=== PATIENT | female | born 1985 | race Caucasian/White ===

== ENCOUNTER 2016-09-28 22:21 | Emergency (ER) | payer BC ==
[2016-09-28] MEDS ORDERED: Amoxicillin/Clavulanate K 875-125 MG Tab PO ONE (22:36)
[2016-09-28] MEDS ORDERED: Diphtheria,Pertussis(Acell),Tetanus Vaccine 0.5 ML SDV inactive IM ONE (22:37)
--- NOTE | 2016-09-28 22:42 | EDM.PDOC ---
ED HPI GENERAL MEDICAL PROBLEM - General Chief Complaint: Bite:Animal, Insect Stated Complaint: Dog bite Time Seen by Provider: 09/28/16 22:25 Source of Information: Reports: Patient, RN Notes Reviewed History Limitations: Reports: No Limitations - History of Present Illness INITIAL COMMENTS - FREE TEXT/NARRATIVE: 31 year old female presents to the ED after her dog bit her arm earlier today. The dog had surgery and woke up from anesthesia agitated and subsequently bit her. She has two puncture wounds to her inner forearm. The dog is up to date on vaccinations. Her tetanus is not current. Right Arm Pain Score (Numeric/FACES): 8 - Related Data Allergies Allergy/AdvReac Type Severity Reaction Status Date / Time bee pollen Allergy Rash Verified 09/28/16 22:31 Home Meds: Home Meds Amoxicillin/Potassium Clav [Augmentin 875-125 Tablet] 1 each PO BID #20 tablet 09/28/16 [Rx] Prednisone [IMW: predniSONE] 30 mg PO DAILY 09/28/16 [History] Past Medical History - Past Surgical History GI Surgical History: Reports: Cholecystectomy ED ROS GENERAL - Review of Systems Review Of Systems: See Below Constitutional: Reports: No Symptoms. Denies: Fever, Chills Skin: Reports: Wound Neurological: Reports: No Symptoms. Denies: Numbness, Tingling ED EXAM, ANIMAL BITE - Physical Exam Exam: See Below Exam Limited By: No Limitations General Appearance: Alert, WD/WN, No Apparent Distress Extremities: Other (bite cornelius to right forearm with 2 small puncture wounds. CMS intact. No deformity. ) Neurological: Alert, Normal Cognition, No Motor/Sensory Deficits Course - Vital Signs Last Recorded V/S: Last Vital Signs Temp 98.7 F 09/28/16 22:26 Pulse 80 09/28/16 22:26 Resp 18 09/28/16 22:26 BP 140/82 09/28/16 22:26 Pulse Ox 96 09/28/16 22:26 - Orders/Labs/Meds Orders: Active Orders 24 hr Category Date Time Status Vaccines to be Administered [RC] PER UNIT ROUTINE Care 09/28/16 22:37 Ordered Meds: Medications Discontinued Medications Generic Name Dose Route Start Last Admin Trade Name Freq PRN Reason Stop Dose Admin Amoxicillin/Clavulanate Potassium 1 tab 09/28/16 22:36 09/28/16 22:50 Augmentin 875 Mg/125 Mg PO 09/28/16 22:37 1 tab ONETIME ONE Administration Diphtheria/Tetanus/Acell Pertussis 0.5 ml 09/28/16 22:37 09/28/16 22:49 Boostrix IM 09/28/16 22:38 0.5 ml .ONCE ONE Administration Departure - Departure Time of Disposition: 22:36 Disposition: Home, Self-Care 01 Condition: Good Clinical Impression: Dog bite, Tetanus toxoid inoculation - Discharge Information Prescriptions: Amoxicillin/Potassium Clav [Augmentin 875-125 Tablet] 1 each PO BID #20 tablet Instructions: Animal Bite, [id number] Referrals: Yoselyn Steele MD [Primary Care Provider] - Forms: ED Department Discharge Additional Instructions: Cold compresses Tylenol or Ibuprofen as needed for pain Cleanse with gentle soap and water 2-3 times per day then apply antibiotic ointment and bandage. Augmentin 1 tab twice a day for 10 days Return to ER if you develop any signs or symptoms of infection (increasing redness, drainage, swelling, fever) - My Orders Last 24 Hours: My Active Orders 09/28/16 22:37 Vaccines to be Administered [RC] PER UNIT ROUTINE - Assessment/Plan Last 24 Hours: My Active Orders 09/28/16 22:37 Vaccines to be Administered [RC] PER UNIT ROUTINE
[2016-09-28 22:46] VITALS: BP 140/82
== END 2016-09-28 23:07 | disposition home or self-care (01) ==
LOC: JD.ED 22:21
DX: S51.851A Open bite of right forearm, initial encounter (principal); Z23 Encounter for immunization; Z79.899 Other long term (current) drug therapy; Z91.030 Bee allergy status; Z90.49 Acquired absence of other specified parts of digestive tract; W54.0XXA Bitten by dog, initial encounter
CPT/HCPCS: 90471; 99283; A9270; 90715

== ENCOUNTER 2016-11-26 16:56 | Emergency (ER) | payer BC ==
[2016-11-26 17:11] VITALS: BP 140/72
--- NOTE | 2016-11-26 17:59 | EDM.PDOC ---
ED HPI GENERAL MEDICAL PROBLEM - General Chief Complaint: Fever Stated Complaint: SORE THROAT/FEVER Time Seen by Provider: 11/26/16 17:27 Source of Information: Reports: Patient, RN Notes Reviewed, Significant Other History Limitations: Reports: No Limitations - History of Present Illness INITIAL COMMENTS - FREE TEXT/NARRATIVE: The patient states that she developed nausea and dry heaves this past Sunday, 02/2017, which have persisted. She developed a fever some time that same day, up to 102 at home this afternoon. She developed a sore throat last night. She has had a cough productive of clear sputum since Sunday. She denies dyspnea. She has had a headache for the past 2 days. The patient denies urinary symptoms or abdominal discomfort. No prior similar symptoms. No known exposure to strep throat. The patient's PCP is Chana Steele. 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) ED ROS GENERAL - Review of Systems Review Of Systems: See Below Constitutional: Reports: No Symptoms HEENT: Reports: No Symptoms Respiratory: Reports: No Symptoms Cardiovascular: Reports: No Symptoms Endocrine: Reports: No Symptoms GI/Abdominal: Reports: No Symptoms : Reports: No Symptoms Musculoskeletal: Reports: No Symptoms Skin: Reports: No Symptoms Neurological: Reports: No Symptoms Psychiatric: Reports: No Symptoms Hematologic/Lymphatic: Reports: No Symptoms Immunologic: Reports: No Symptoms ED EXAM, GENERAL - Physical Exam Exam: See Below Exam Limited By: No Limitations General Appearance: Alert, WD/WN, No Apparent Distress Eye Exam: Bilateral Eye: Normal Inspection Ears: Normal External Exam, Normal Canal, Hearing Grossly Normal, Normal TMs Nose: Normal Inspection, Normal Mucosa, No Blood Throat/Mouth: Normal Inspection, Normal Lips, Normal Teeth, Normal Gums, Normal Voice, No Airway Compromise, Other (Posterior oropharynx is erythematous, but no tonsillar exudates. No oropharyngeal swelling.) Head: Atraumatic, Normocephalic Neck: Normal Inspection, Supple, Non-Tender, Full Range of Motion. No: Lymphadenopathy (L), Lymphadenopathy (R) Respiratory/Chest: No Respiratory Distress, Lungs Clear, Normal Breath Sounds, No Accessory Muscle Use Cardiovascular: Normal Peripheral Pulses, Regular Rate, Rhythm, No Gallop, No JVD, No Murmur, No Rub Peripheral Pulses: 4+: Radial (L), Radial (R) GI/Abdominal: Normal Bowel Sounds, Soft, Non-Tender, No Organomegaly, No Distention, No Abnormal Bruit, No Mass (Female) Exam: Deferred Rectal (Female) Exam: Deferred Back Exam: Normal Inspection, Full Range of Motion Extremities: Normal Inspection, Normal Range of Motion, No Pedal Edema, Normal Capillary Refill Neurological: Alert, Oriented, Normal Cognition, No Motor/Sensory Deficits Psychiatric: Normal Affect Skin Exam: Warm, Dry, Intact, Normal Color, No Rash Lymphatic: No Adenopathy Course - Vital Signs Last Recorded V/S: Last Vital Signs Temp 37.9 C 11/26/16 18:20 Pulse 102 H 11/26/16 17:07 Resp 19 11/26/16 17:07 BP 140/72 11/26/16 17:07 Pulse Ox 99 11/26/16 17:07 - Orders/Labs/Meds Orders: Active Orders 24 hr Category Date Time Status CULTURE STREP A CONFIRMATION [] Stat Lab 11/26/16 17:15 Results Rapid Strep w/culture conf [STREP SCRN A RAPID W CULT Lab 11/26/16 17:15 Results CONF] [RM] Stat - Re-Assessments/Exams Free Text/Narrative Re-Assessment/Exam: 11/26/16 17:54 The rapid strep test returned negative. This was discussed with the patient. Her sore throat is most likely due to viral pharyngitis, and this may explain her low-grade fever, as well. I cannot, however, explain her nausea and dry heaves, her cough, or headache. I offered additional workup, however, the patient would prefer to go home. A helmet was given to the patient's son. Departure - Departure Time of Disposition: 17:56 Disposition: Home, Self-Care 01 Condition: Good Clinical Impression: Viral pharyngitis, Cough, Fever, Headache - Discharge Information Instructions: Cough, Adult, [id number], Pharyngitis, [id number] Referrals: Sharon Steele, SENIOR CLINICIAN [Primary Care Provider] - Forms: ED Department Discharge Additional Instructions: You were seen in the emergency room for a fever, sore throat, nausea, cough, and headache. Workup in the ER included a rapid strep test, which returned negative. Your sore throat, and possibly your fever, are MOST LIKELY due to viral pharyngitis. Further workup was offered, but declined. For your sore throat, we recommend Tylenol or ibuprofen, warm salt water gargles , and Chloraseptic spray. Fever itself does not require treatment. It is your body trying to fight an infection. Follow-up with your PCP, Chana Steele, at the next available appointment. If any other problems, please do not hesitate to return to the ER. - My Orders Last 24 Hours: My Active Orders 11/26/16 17:15 Rapid Strep w/culture conf [STREP SCRN A RAPID W CULT CONF] [] Stat - Assessment/Plan Last 24 Hours: My Active Orders 11/26/16 17:15 Rapid Strep w/culture conf [STREP SCRN A RAPID W CULT CONF] [RM] Stat
== END 2016-11-26 18:20 | disposition home or self-care (01) ==
LOC: JD.ED 16:56
DX: J02.8 Acute pharyngitis due to other specified organisms (principal); R51 Headache; F17.210 Nicotine dependence, cigarettes, uncomplicated; Z90.49 Acquired absence of other specified parts of digestive tract; Z91.018 Allergy to other foods
CPT/HCPCS: 87081; 87430; 99282; 99283

== ENCOUNTER 2019-11-06 19:39 | Emergency (ER) | payer SELFPAY ==
[2019-11-06 19:48] VITALS: BP 183/104; PULSE 88
[2019-11-06] MEDS ORDERED: Lidocaine/EPINEPHrine/Tetracaine Soln 1 ML TOP ONE (20:45)
[2019-11-06] MEDS ORDERED: Amoxicillin/Clavulanate K 875-125 MG Tab PO ONE (20:50)
--- NOTE | 2019-11-06 20:53 | EDM.PDOC ---
ED HPI GENERAL MEDICAL PROBLEM - General Chief Complaint: Bite:Animal, Insect Stated Complaint: DOG BITE TO FACE Time Seen by Provider: 11/06/19 20:32 Source of Information: Reports: Patient, RN Notes Reviewed History Limitations: Reports: No Limitations - History of Present Illness INITIAL COMMENTS - FREE TEXT/NARRATIVE: Patient is a 34-year-old female who presents to the ED for evaluation of a dog bite to her nose. Patient notes she was in the backyard and the neighbors dog, which happens to be along her gonzalez retriever jumped up and bit her in the face, she received a 2 cm crescent-shaped laceration to the tip of the nose, the area on the tip of the nose, is slightly gaping, there is minimal bleeding, however it is still oozing. The patient patient is not sure if the dog is up-to-date on his vaccines does have some fragile skin flaps, that do not look to be repairable., But she is up-to-date on her tetanus booster, states that her last one was roughly 3 years ago. Patient is filing charges with police at this time. Patient denies any other sick-like symptoms, fever/chills, nausea/vomiting/diarrhea at this time or prior to the injury. Patient denies any other injuries, regarding the lip/mouth/eyes, and she denies any epistaxis. Nose Pain Score (Numeric/FACES): 10 - Related Data Allergies Allergy/AdvReac Type Severity Reaction Status Date / Time bee pollen Allergy Rash Verified 11/06/19 19:44 Home Meds: Home Meds Amoxicillin/Clavulanate K [Augmentin 875-125 MG] 1 tab PO BID #14 tablet 11/06/19 [Rx] Vortioxetine Hydrobromide [Brintellix] 10 mg PO DAILY 11/06/19 [History] Past Medical History - Past Health History Medical/Surgical History: Denies Medical/Surgical History - Past Surgical History GI Surgical History: Reports: Cholecystectomy Social & Family History - Tobacco Use Smoking Status *Q: Current Every Day Smoker Years of Tobacco use: 10 Packs/Tins Daily: 0.5 - Caffeine Use Caffeine Use: Reports: Coffee - Alcohol Use Days Per Week of Alcohol Use: 3 Number of Drinks Per Day: 3 Total Drinks Per Week: 9 - Recreational Drug Use Recreational Drug Use: No - Living Situation & Occupation Living situation: Reports: , with Significant Other (Boyfriend), with Family (Son) 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 ED EXAM, ANIMAL BITE - Physical Exam Exam: See Below Exam Limited By: No Limitations General Appearance: Alert, WD/WN, No Apparent Distress Nose: Normal Mucosa, No Blood, Other (2cm curvilinear laceration to tip of nose) Respiratory/Chest: No Respiratory Distress, Lungs Clear, Normal Breath Sounds, No Accessory Muscle Use, Chest Non-Tender Cardiovascular: Normal Peripheral Pulses, Regular Rate, Rhythm, No Murmur Extremities: Normal Inspection, Normal Capillary Refill Neurological: Alert, Oriented, Normal Cognition, No Motor/Sensory Deficits Psychiatric: Normal Affect, Normal Mood Skin Exam: Normal Color, Warm/Dry, Other (laceration to tip of nose; 2cm curvilinear laceration, the area at the tip of the nose is gaping and will require suturing, the other areas are more superficial and fragile, and would likely look worse if they were attempted to be repaired with sutures.) ED ANIMAL BITE PROCEDURES - Laceration/Wound Repair Medial Distal Nose Lac/Wound Length In cm: 2 Appearance: Superficial, Linear (curvilinear), Clean Distal NVT: Neuro & Vascular Intact, No Tendon Injury Anesthetic Type: Topical (LET applied) Skin Prep: Chlorhexidine (Hibiciens), Saline Exploration/Debridement/Repair: Wound Explored, In a Bloodless Field, Explored to Base, No Foreign Material Found Closed With: Sutures Suture Size: 5-0 # of Sutures: 5 Suture Type: Prolene, Interrupted, Simple Sterile Dressing Applied: Nurse Tetanus Status Addressed: Yes Complications: No Course - Vital Signs Last Recorded V/S: Last Vital Signs Temp 97.6 F 11/06/19 19:45 Pulse 88 11/06/19 19:45 Resp 16 11/06/19 19:45 BP 183/104 H 11/06/19 19:45 Pulse Ox 96 11/06/19 19:45 - Orders/Labs/Meds Meds: Medications Discontinued Medications Generic Name Dose Route Start Last Admin Trade Name Freq PRN Reason Stop Dose Admin Amoxicillin/Clavulanate Potassium 1 tab 11/06/19 20:50 11/06/19 21:30 Augmentin 875 Mg/125 Mg PO 11/06/19 20:51 1 tab ONETIME ONE Administration Lidocaine/Tetracaine 1 ml 11/06/19 20:45 11/06/19 20:54 Jewels DASH 11/06/19 20:46 1 ml ONETIME ONE Administration - Re-Assessments/Exams Free Text/Narrative Re-Assessment/Exam: 11/06/19 20:54 Patient presents to the ED for evaluation of the dog bite on the end of her nose, the laceration itself is curvilinear, and the skin appears to be fragile on one end, and laceration gaping on the other, which will require suturing. I did discuss with the patient, she is not happy with the way this turns out, that she can have a consult with plastic surgery, and she seems to understand this. I did also discuss with her finding out if the dog has had its rabies vaccinations, or up-to-date on its shots, since she does have the police invo lved, she will likely know this within the next day or so, this should be enough time to be seen for rabies vaccinations if needed. Departure - Departure Time of Disposition: 20:55 Disposition: Home, Self-Care 01 Condition: Good Clinical Impression: Dog bite of nose Qualifiers: Encounter type: initial encounter Qualified Code(s): S01.25XA - Open bite of nose, initial encounter - Discharge Information *PRESCRIPTION DRUG MONITORING PROGRAM REVIEWED*: No *COPY OF PRESCRIPTION DRUG MONITORING REPORT IN PATIENT TERESE: No Prescriptions: Amoxicillin/Clavulanate K [Augmentin 875-125 MG] 1 tab PO BID #14 tablet Instructions: Animal Bite, Adult, [id number] Referrals: Lexis Shannon BLEACH SUPERVISOR [Primary Care Provider] - Forms: ED Department Discharge Additional Instructions: You have been evaluated in the ED for your laceration. Sutures will need to stay in for 7-10 days. (11/12 - 11/15) You may return to the ED or any clinic for removal. Please keep this area clean and dry, you may cleanse with regular soap and water. No vigorous scrubbing. You may try to apply ice to the area to relieve some swelling, you may also use 600 mg ibuprofen every 6 hours as needed for further pain relief. Do not exceed 3200 mg ibuprofen in a 24-hour time span. As this did result from a dog bite, you will be placed on Augmentin, 1 tablet 2 times a day for the next 7 days, this antibiotic can cause some diarrhea, so I recommend that you take a probiotic while using this antibiotic. Regarding the dogs vaccination status, you have 10 days to ascertain if the dog is up-to-date on its rabies vaccinations, you may seek care at any clinic if the rabies vaccine series is required for treatment for you. Please try to coordinate the best you can with police officers, to determine the dog's immunization status. Please return to ED if your symptoms change or worsen. Sepsis Event Note (ED) - Evaluation Sepsis Screening Result: No Definite Risk - Focused Exam Vital Signs: Vital Signs Temp Pulse Resp BP Pulse Ox 11/06/19 19:45 97.6 F 88 16 183/104 H 96
== END 2019-11-06 21:46 | disposition home or self-care (01) ==
LOC: JD.ED 19:39
DX: S01.25XA Open bite of nose, initial encounter (principal); F17.210 Nicotine dependence, cigarettes, uncomplicated; Z91.030 Bee allergy status; W54.0XXA Bitten by dog, initial encounter
CPT/HCPCS: 12011; 99283; A9270

== ENCOUNTER 2020-06-05 20:19 | Emergency (ER) | payer MEDICAID ==
[2020-06-05] MEDS ORDERED: HYDROmorphone 1 MG/ML Syringe IM ONE (20:41)
[2020-06-05] MEDS ORDERED: Ondansetron 4 MG/2 ML SDV IVPUSH ONE (20:41)
[2020-06-05] MEDS ORDERED: HYDROmorphone 1 MG/ML Syringe IVPUSH STA (20:47)
--- NOTE | 2020-06-05 20:48 | EDM.PDOC ---
ED HPI GENERAL MEDICAL PROBLEM - General Chief Complaint: ENT Problem Stated Complaint: [facility] Time Seen by Provider: 06/05/20 20:38 Source of Information: Reports: Patient, RN Notes Reviewed History Limitations: Reports: No Limitations - History of Present Illness INITIAL COMMENTS - FREE TEXT/NARRATIVE: Patient is a 35-year-old female who presents to the ED via [facility] for the evaluation of her dog bite to her face. The patient notes she was playing with her dogs outside, and they ended up biting her. She notes she does have alcohol on board. She has some mild abrasions to her chest, there does appear to be some dried blood coming from her nose is unclear as if there is an actual laceration at the fold of the nare to the face. There is a rather large gaping laceration to the patient's right lower lip, that does appear to extend to the inner fold where the jaw attaches to the lip. Patient has no blurred vision or double vision, states she is in quite a bit of pain due to the injury. Patient denies any other sick-like symptoms, fever/chills, cough/shortness of breath, nausea/vomiting/diarrhea. Face/Facial Pain Score (Numeric/FACES): 10 - Related Data Allergies Allergy/AdvReac Type Severity Reaction Status Date / Time bee pollen Allergy Rash Verified 06/05/20 20:26 Home Meds: Home Meds Amoxicillin/Clavulanate K [Augmentin 875-125 MG] 1 tab PO BID #14 tablet 11/06/19 [Rx] Vortioxetine Hydrobromide [Brintellix] 10 mg PO DAILY 11/06/19 [History] Past Medical History - Past Health History Medical/Surgical History: Denies Medical/Surgical History - Past Surgical History GI Surgical History: Reports: Cholecystectomy Social & Family History - Caffeine Use Caffeine Use: Reports: Coffee - Living Situation & Occupation Living situation: Reports: , with Significant Other (Boyfriend), with Family (Son) 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 ED EXAM, GENERAL - Physical Exam Exam: See Below Exam Limited By: No Limitations General Appearance: Alert, WD/WN, No Apparent Distress Eye Exam: Bilateral Eye: EOMI, Normal Inspection, PERRL Nose: Nasal Drainage (dried blood at entrance of both nares) Head: Other (see skin assessment for further detail) Respiratory/Chest: No Respiratory Distress, Lungs Clear, Normal Breath Sounds, No Accessory Muscle Use, Chest Non-Tender, Other (there are claw cornelius or abrasions to the patient's entire anterior chest.) Cardiovascular: Normal Peripheral Pulses, Regular Rate, Rhythm, No Edema Peripheral Pulses: 2+: Radial (L), Radial (R) Extremities: Normal Inspection, Normal Capillary Refill Neurological: Alert, Oriented, Normal Cognition, No Motor/Sensory Deficits Psychiatric: Anxious Skin Exam: Warm, Dry, Normal Color, No Rash, Wound/Incision (There is at least a 6 cm laceration to the right lower jaw, that does extend into the oral mucosa) Course - Vital Signs Last Recorded V/S: Last Vital Signs Temp 97.6 F 06/05/20 20:23 Pulse 91 06/05/20 20:23 Resp 18 06/05/20 20:23 BP 176/95 H 06/05/20 20:23 Pulse Ox 97 06/05/20 20:23 - Orders/Labs/Meds Orders: Active Orders 24 hr Category Date Time Status Ampicillin/Sulbactam Na [Unasyn] 3 gm Med 06/05/20 21:01 Ordered Sodium Chloride 0.9% [Normal Saline] 100 ml IV ONETIME Medication Orders Ampicillin Sodium/Sulbactam (Sodium 3 gm/ Sodium Chloride) 100 mls @ 200 mls/hr IV ONETIME ONE Stop: 06/05/20 21:30 Meds: Medications Generic Name Dose Route Start Last Admin Trade Name Freq PRN Reason Stop Dose Admin Ampicillin Sodium/Sulbactam 100 mls @ 200 mls/hr 06/05/20 21:01 Sodium 3 gm/ Sodium Chloride IV 06/05/20 21:30 ONETIME ONE Discontinued Medications Generic Name Dose Route Start Last Admin Trade Name Freq PRN Reason Stop Dose Admin Hydromorphone HCl 1 mg 06/05/20 20:47 06/05/20 20:52 Dilaudid IVPUSH 06/05/20 20:48 1 mg ONETIME STA Administration Ondansetron HCl 4 mg 06/05/20 20:41 06/05/20 20:52 Zofran IVPUSH 06/05/20 20:42 4 mg ONETIME ONE Administration - Re-Assessments/Exams Free Text/Narrative Re-Assessment/Exam: 06/05/20 20:49 Patient presents to the ED for her dog bite, the wounds are very extensive, and would benefit more from being cleaned out in the OR with a possible plastics referral or maxillofacial referral. Was having quite a bit of pain, we will give her 1 mg I V Dilaudid and 4 mg Zofran for suspected nausea management with the pain meds. 06/05/20 21:05 I was able to talk with Dr. Jaclyn barcenas the plastic surgeon at [facility] in [place], and he does recommend sending the patient to the ER for initial management, Dr. Valencia did ultimately accept the patient for transfer at 2100, he does recommend giving the patient 3 g of Unasyn initially. Departure - Departure Time of Disposition: 21:17 Disposition: Home, Self-Care 01 Condition: Fair Clinical Impression: Open wound of face due to dog bite - Discharge Information *PRESCRIPTION DRUG MONITORING PROGRAM REVIEWED*: No *COPY OF PRESCRIPTION DRUG MONITORING REPORT IN PATIENT TERESE: No Forms: ED Department Discharge Sepsis Event Note (ED) - Evaluation Sepsis Screening Result: No Definite Risk - Focused Exam Vital Signs: Vital Signs Temp Pulse Resp BP Pulse Ox 06/05/20 20:23 97.6 F 91 18 176/95 H 97 - My Orders Last 24 Hours: My Active Orders 06/05/20 21:01 Ampicillin/Sulbactam Na [Unasyn] 3 gm Sodium Chloride 0.9% [Normal Saline] 100 ml IV ONETIME - Assessment/Plan Last 24 Hours: My Active Orders 06/05/20 21:01 Ampicillin/Sulbactam Na [Unasyn] 3 gm Sodium Chloride 0.9% [Normal Saline] 100 ml IV ONETIME
[2020-06-05] MEDS ORDERED: Ampicillin/Sulbactam Na 3 GM in Sodium Chloride 0.9% 100 ML IV ONE (21:01)
[2020-06-05] MEDS ORDERED: HYDROmorphone 0.5 MG/0.5 ML Syringe IVPUSH ONE (21:23)
[2020-06-05] MEDS ORDERED: HYDROmorphone 0.5 MG/0.5 ML Syringe IVPUSH STA (21:41)
[2020-06-05] MEDS ORDERED: fentaNYL 100 MCG/2 ML SDV IVPUSH STA (22:11)
[2020-06-05 23:37] VITALS: BP 149/74; PULSE 81
== END 2020-06-05 22:30 | disposition home or self-care (01) ==
LOC: JD.ED 20:19
DX: S01.85XA Open bite of other part of head, initial encounter (principal); S20.319A Abrasion of unspecified front wall of thorax, initial encounter; Z91.030 Bee allergy status; Z79.899 Other long term (current) drug therapy; W54.0XXA Bitten by dog, initial encounter
CPT/HCPCS: 96365; 96375; 96376; 99284; J0295; J1170; J2405; J3010

== ENCOUNTER 2021-01-05 14:56 | Observation (INO) | payer MEDICAID ==
[2021-01-05] MEDS ORDERED: Ondansetron 4 MG/2 ML SDV IVPUSH ONE (15:20)
[2021-01-05] MEDS ORDERED: Sodium Chloride 0.9% 10 ML Syringe FLUSH PRN (15:20)
--- NOTE | 2021-01-05 15:25 | EDM.PDOC ---
ED HPI GENERAL MEDICAL PROBLEM - General Chief Complaint: Abdominal Pain Stated Complaint: ABDOMINAL PAIN Time Seen by Provider: 01/05/21 15:09 Source of Information: Reports: Patient, RN Notes Reviewed History Limitations: Reports: No Limitations - History of Present Illness INITIAL COMMENTS - FREE TEXT/NARRATIVE: Patient is a 35-year-old female who presents to the ER for the evaluation of her right lower quadrant abdominal pain. The patient states that this started roughly 2 days ago, and has been constant since it started. She has been nauseous enough that she cannot eat and has no appetite. She states that she has had diarrhea for the past few days as well, and has not had a formed stool. She had a low-grade temperature at home, of 99.4 F. She has been using Tylenol ibuprofen for the pain but nothing seems to make it better. She says that if she coughs, sneezes, or laughs, does cause pain in the right lower quadrant. It started near her umbilicus, and then traveled to her right lower quadrant. Patient still retains her appendix but has had her gallbladder removed. Patient states that she had Covid back in February 2020, she is fully vaccinated with the Pfizer vaccine, and gets COVID-19 tested 2 times a week for her work. Her last COVID-19 screen was this morning however she is not sure about the results of this test. Patient states that again she did have Covid, this feels nothing like COVID-19. 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: - Infectious Disease History Infectious Disease History: Reports: Novel Coronavirus (02/2020) - Past Surgical History GI Surgical History: Reports: Cholecystectomy Social & Family History - Tobacco Use Tobacco Use Status *Q: Current Every Day Tobacco User Years of Tobacco use: 20 Packs/Tins Daily: 0.5 - Caffeine Use Caffeine Use: Reports: Coffee - Recreational Drug Use Recreational Drug Use: No - Living Situation & Occupation Living situation: Reports: , with Significant Other (Boyfriend), with Family (Son) 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 ED EXAM, GI/ABD - Physical Exam Exam: See Below Exam Limited By: No Limitations General Appearance: Alert, WD/WN, No Apparent Distress Respiratory/Chest: No Respiratory Distress, Lungs Clear, Normal Breath Sounds, No Accessory Muscle Use, Chest Non-Tender Cardiovascular: Normal Peripheral Pulses, Regular Rate, Rhythm, No Edema GI/Abdominal Exam: Normal Bowel Sounds, Soft, No Distention, No Mass, Guarding, Rebound, Tender (Exquisite RLQ tenderness with rebound and guarding) Extremities: Normal Inspection, Normal Capillary Refill Neurological: Alert, Oriented, Normal Cognition, No Motor/Sensory Deficits Psychiatric: Normal Affect, Normal Mood Skin Exam: Warm, Dry, Intact, Normal Color, No Rash Course - Vital Signs Last Recorded V/S: Last Vital Signs Temp 98.1 F 01/05/21 15:03 Pulse 97 01/05/21 15:03 Resp 18 01/05/21 15:03 BP 174/93 H 01/05/21 15:03 Pulse Ox 98 01/05/21 15:03 - Orders/Labs/Meds Orders: Active Orders 24 hr Category Date Time Status Notify Provider Consults [RC] ASDIRECTED Care 01/05/21 18:02 Ordered Peripheral IV Care [RC] . DIRECTED Care 01/05/21 15:21 Active Consult to Physician [CONS] Stat Cons 01/05/21 18:02 Ordered Abdomen Pelvis w Cont [CT] Stat Exams 01/05/21 15:20 Taken CORONAVIRUS COVID-19 GARRY [MOLEC] Stat Lab 01/05/21 18:00 Ordered UA W/MICROSCOPIC [URIN] Stat Lab 01/05/21 15:42 Results Sodium Chloride 0.9% [Normal Saline] 1,000 ml Med 01/05/21 15:30 Active IV ASDIRECTED Sodium Chloride 0.9% [Saline Flush] Med 01/05/21 15:20 Active 10 ml FLUSH ASDIRECTED PRN Sodium Chloride 0.9% [Saline Flush] Med 01/05/21 15:38 Active 10 ml FLUSH ONETIME PRN Peripheral IV Insertion Adult [OM.PC] Stat Oth 01/05/21 15:20 Ordered Medication Orders Sodium Chloride (Normal Saline) 1,000 mls @ 999 mls/hr IV ASDIRECTED EDUARDO Last Admin: 01/05/21 15:41 Dose: 999 mls/hr Documented by: SINAN Sodium Chloride (Sodium Chloride 0.9% 10 Ml Syringe) 10 ml FLUSH ASDIRECTED PRN PRN Reason: Keep Vein Open Sodium Chloride (Sodium Chloride 0.9% 10 Ml Syringe) 10 ml FLUSH ONETIME PRN PRN Reason: IV FLUSH Last Admin: 01/05/21 16:57 Dose: 10 ml Documented by: Admin: 01/05/21 15:55 Dose: 10 ml Documented by: SINAN Labs: Laboratory Tests 01/05/21 01/05/21 01/05/21 Range/Units 15:30 15:30 15:42 WBC 20.17 H (3.98-10.04) K/mm3 RBC 4.42 (3.98-5.22) M/mm3 Hgb 13.9 (11.2-15.7) gm/dl Hct 42.1 (34.1-44.9) % MCV 95.2 H D (79.4-94.8) fl MCH 31.4 (25.6-32.2) pg MCHC 33.0 (32.2-35.5) g/dl RDW Std Deviation 47.1 H (36.4-46.3) fL Plt Count 333 (182-369) K/mm3 MPV 9.3 L (9.4-12.3) fl Neut % (Auto) 77.3 H (34.0-71.1) % Lymph % (Auto) 16.3 L (19.3-51.7) % [place] % (Auto) 5.7 (4.7-12.5) % Eos % (Auto) 0.1 L (0.7-5.8) Baso % (Auto) 0.1 (0.1-1.2) % Neut # (Auto) 15.59 H (1.56-6.13) K/mm3 Lymph # (Auto) 3.28 (1.18-3.74) K/mm3 [place] # (Auto) 1.14 H (0.24-0.36) K/mm3 Eos # (Auto) 0.03 L (0.04-0.36) K/mm3 Baso # (Auto) 0.03 (0.01-0.08) K/mm3 Sodium 140 (136-145) mEq/L Potassium 4.4 (3.5-5.1) mEq/L Chloride 103 (98-107) mEq/L Carbon Dioxide 26 (21-32) mEq/L Anion Gap 15.4 H (5-15) BUN 8 (7-18) mg/dL Creatinine 0.9 (0.55-1.02) mg/dL Est Cr Clr Drug Dosing 80.12 mL/min Estimated GFR (MDRD) > 60 (>60) mL/min BUN/Creatinine Ratio 8.9 L (14-18) Glucose 104 H (70-99) mg/dL Calcium 9.2 (8.5-10.1) mg/dL Total Bilirubin 0.4 (0.2-1.0) mg/dL AST 17 (15-37) U/L ALT 30 (14-59) U/L Alkaline Phosphatase 63 (46-116) U/L C-Reactive Protein 1.1 H* (<1.0) mg/dL Total Protein 7.5 (6.4-8.2) g/dl Albumin 3.7 (3.4-5.0) g/dl Globulin 3.8 gm/dL Albumin/Globulin Ratio 1.0 (1-2) Lipase 82 (73-393) U/L Urine Color Yellow (Yellow) Urine Appearance Clear (Clear) Urine pH 6.0 (5.0-8.0) Ur Specific [place] 1.025 (1.005-1.030) Urine Protein Negative (Negative) Urine Glucose (UA) Negative (Negative) Urine Ketones Negative (Negative) Urine Occult Blood Negative (Negative) Urine Nitrite Negative (Negative) Urine Bilirubin Negative (Negative) Urine Urobilinogen 0.2 (0.2-1.0) Ur Leukocyte Esterase Negative (Negative) Urine HCG, Qual (NEGATIVE) 01/05/21 Range/Units 15:42 WBC (3.98-10.04) K/mm3 RBC (3.98-5.22) M/mm3 Hgb (11.2-15.7) gm/dl Hct (34.1-44.9) % MCV (79.4-94.8) fl MCH (25.6-32.2) pg MCHC (32.2-35.5) g/dl RDW Std Deviation (36.4-46.3) fL Plt Count (182-369) K/mm3 MPV (9.4-12.3) fl Neut % (Auto) (34.0-71.1) % Lymph % (Auto) (19.3-51.7) % [place] % (Auto) (4.7-12.5) % Eos % (Auto) (0.7-5.8) Baso % (Auto) (0.1-1.2) % Neut # (Auto) (1.56-6.13) K/mm3 Lymph # (Auto) (1.18-3.74) K/mm3 [place] # (Auto) (0.24-0.36) K/mm3 Eos # (Auto) (0.04-0.36) K/mm3 Baso # (Auto) (0.01-0.08) K/mm3 Sodium (136-145) mEq/L Potassium (3.5-5.1) mEq/L Chloride (98-107) mEq/L Carbon Dioxide (21-32) mEq/L Anion Gap (5-15) BUN (7-18) mg/dL Creatinine (0.55-1.02) mg/dL Est Cr Clr Drug Dosing mL/min Estimated GFR (MDRD) (>60) mL/min BUN/Creatinine Ratio (14-18) Glucose (70-99) mg/dL Calcium (8.5-10.1) mg/dL Total Bilirubin (0.2-1.0) mg/dL AST (15-37) U/L ALT (14-59) U/L Alkaline Phosphatase (46-116) U/L C-Reactive Protein (<1.0) mg/dL Total Protein (6.4-8.2) g/dl Albumin (3.4-5.0) g/dl Globulin gm/dL Albumin/Globulin Ratio (1-2) Lipase (73-393) U/L Urine Color (Yellow) Urine Appearance (Clear) Urine pH (5.0-8.0) Ur Specific [place] (1.005-1.030) Urine Protein (Negative) Urine Glucose (UA) (Negative) Urine Ketones (Negative) Urine Occult Blood (Negative) Urine Nitrite (Negative) Urine Bilirubin (Negative) Urine Urobilinogen (0.2-1.0) Ur Leukocyte Esterase (Negative) Urine HCG, Qual Negative (NEGATIVE) Meds: Medications Generic Name Dose Route Start Last Admin Trade Name Freaditi PRN Reason Stop Dose Admin Sodium Chloride 1,000 mls @ 999 mls/hr 01/05/21 15:30 01/05/21 15:41 Normal Saline IV 999 mls/hr ASDIRECTED EDUARDO Administration Sodium Chloride 10 ml 01/05/21 15:20 Sodium Chloride 0.9% 10 Ml Syringe FLUSH ASDIRECTED PRN Keep Vein Open Sodium Chloride 10 ml 01/05/21 15:38 01/05/21 16:57 Sodium Chloride 0.9% 10 Ml Syringe FLUSH 10 ml ONETIME PRN Administration IV FLUSH Discontinued Medications Generic Name Dose Route Start Last Admin Trade Name Hunter PRN Reason Stop Dose Admin Diatrizoate Meglum/Diatrizoate Sod 120 ml 01/05/21 15:38 01/05/21 16:58 Diatrizoate Meglumine/Diatrizoate Sodium 37% 120 Ml Bottle PO 01/05/21 15:39 90 ml ONETIME ONE Administration Iopamidol 100 ml 01/05/21 15:38 01/05/21 16:57 Iopamidol 612 Mg/Ml 100 Ml Bottle IVPUSH 01/05/21 15:39 100 ml ONETIME ONE Administration Ondansetron HCl 4 mg 01/05/21 15:20 01/05/21 15:41 Ondansetron 4 Mg/2 Ml Sdv IVPUSH 01/05/21 15:21 4 mg ONETIME ONE Administration - Re-Assessments/Exams Free Text/Narrative Re-Assessment/Exam: 01/05/21 15:24 Patient presents to the ER for evaluation of her right lower quadrant abdominal pain, as her clinical exam checks out, is very highly suspicious for appendicitis we will go ahead and get an IV started, get some labs, and get abdomen pelvis CT with IV and oral contrast for further evaluation. Patient did present to the room with a coffee and I did tell her until we can get the CT back that she should not drink any more coffee at this time. We will await the possibility of requiring another Covid screen for this person as she just got Covid screened at her job this morning. 01/05/21 16:25 White count is elevated at 20,000 with 77% neutrophils on the auto differential. CRP is mildly elevated at 1.1, the remainder of the CMP is unremarkable, urinalysis is negative for infection. 01/05/21 18:[address] scan did come back at this time with no acute findings however by clinical exam again I am highly suspicious for appendicitis I did go over the case with Dr. Avila and he will come in to evaluate the patient. He does want a Covid swab to be obtained because the patient cannot provide proof of a negative test within the last 96 hours. This will be ordered. 01/05/21 18:[address] Avila there is something called the Avelar score for further evaluation of possible appendicitis. I did pull this up on Calc, and the patient did score 8 which made the likelihood of appendicitis probable or likely. The patient is going to be going to the OR for a lap appendectomy. Departure - Departure Time of Disposition: 18:11 Disposition: DC/Tfer to [facility] Condition: Good Clinical Impression: Appendicitis Qualifiers: Appendicitis type: acute appendicitis Acute appendicitis type: with localized peritonitis Appendicitis gangrene presence: without gangrene Appendicitis perforation presence: without perforation Appendicitis abscess presence: without abscess Qualified Code(s): K35.30 - Acute appendicitis with localized peritonitis, without perforation or gangrene - Discharge Information Referrals: Lexsi Shannon CODE CLERK [Primary Care Provider] - Forms: ED Department Discharge Sepsis Event Note (ED) - Evaluation Sepsis Screening Result: No Definite Risk - Focused Exam Vital Signs: Vital Signs Temp Pulse Resp BP Pulse Ox 01/05/21 15:03 98.1 F 97 18 174/93 H 98 - My Orders Last 24 Hours: My Active Orders 01/05/21 15:20 Abdomen Pelvis w Cont [CT] Stat Sodium Chloride 0.9% [Saline Flush] 10 ml FLUSH ASDIRECTED PRN Peripheral IV Insertion Adult [OM.PC] Stat 01/05/21 15:21 Peripheral IV Care [RC] . DIRECTED 01/05/21 15:30 Sodium Chloride 0.9% [Normal Saline] 1,000 ml IV ASDIRECTED 01/05/21 15:38 Sodium Chloride 0.9% [Saline Flush] 10 ml FLUSH ONETIME PRN 01/05/21 15:42 UA W/MICROSCOPIC [URIN] Stat 01/05/21 18:00 CORONAVIRUS COVID-19 GARRY [MOLEC] Stat 01/05/21 18:02 Notify Provider Consults [RC] ASDIRECTED Consult to Physician [CONS] Stat - Assessment/Plan Last 24 Hours: My Active Orders 01/05/21 15:20 Abdomen Pelvis w Cont [CT] Stat Sodium Chloride 0.9% [Saline Flush] 10 ml FLUSH ASDIRECTED PRN Peripheral IV Insertion Adult [OM.PC] Stat 01/05/21 15:21 Peripheral IV Care [RC] . DIRECTED 01/05/21 15:30 Sodium Chloride 0.9% [Normal Saline] 1,000 ml IV ASDIRECTED 01/05/21 15:38 Sodium Chloride 0.9% [Saline Flush] 10 ml FLUSH ONETIME PRN 01/05/21 15:42 UA W/MICROSCOPIC [URIN] Stat 01/05/21 18:00 CORONAVIRUS COVID-19 GARRY [MOLEC] Stat 01/05/21 18:02 Notify Provider Consults [RC] ASDIRECTED Consult to Physician [CONS] Stat
[2021-01-05] MEDS ORDERED: Sodium Chloride 0.9% 1,000 ML IV SCH (15:30)
[2021-01-05] MEDS ORDERED: Iopamidol 612 MG/ML 100 ML Bottle IVPUSH ONE (15:38)
[2021-01-05] MEDS ORDERED: Diatrizoate Meglumine/Diatrizoate Sodium 37% 120 ML Bottle PO ONE (15:38)
[2021-01-05] MEDS: Sodium Chloride 0.9% 10 ML Syringe FLUSH PRN ×2 (15:55→16:57)
[2021-01-05] MEDS ORDERED: cefOXitin 2 GM in Premix Bag 1 BAG IV ONE (18:25)
--- NOTE | 2021-01-05 18:31 | PCM.HP.2 ---
H&P History of Present Illness - General Date of Service: 01/05/21 Source of Information: Patient History Limitations: Reports: No Limitations - History of Present Illness Initial Comments - Free Text/Narative: Ms. Proctor is a 35 yo woman who presents with abdominal pain that began yesterday. She has never had such pain. It developed in the mid abdomen and migrated to the right lower quadrant. She had a low grade fever of 99.4 F at home. She has associated nausea/malaise and no appetite; she has not eaten since yesterday. She is have diarrhea, going a few times a day since onset. She denies rectal bleeding. She has no sick contacts. Medical history is unremarkable. She has had cholecystectomy and breast implants. No drug allergies. No personal or family history of autoimmune disease/ inflammatory bowel disease. In the ER today, WBC is 20,000 with left shift but CT scan of the abdomen and pelvis with contrast shows no inflammatory changes. Right Abdomen Pain Score (Numeric/FACES): 7 - Related Data Allergies/Adverse Reactions: Allergies Allergy/AdvReac Type Severity Reaction Status Date / Time bee pollen Allergy Rash Verified 06/05/20 20:26 Home Medications: Home Meds . 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: - Infectious Disease History Infectious Disease History: Reports: Novel Coronavirus (02/2020) - Past Surgical History GI Surgical History: Reports: Cholecystectomy Social & Family History - Tobacco Use Tobacco Use Status *Q: Current Every Day Tobacco User Years of Tobacco use: 20 Packs/Tins Daily: 0.5 - Caffeine Use Caffeine Use: Reports: Coffee - Recreational Drug Use Recreational Drug Use: No - Living Situation & Occupation Living situation: Reports: , with Significant Other (Boyfriend), with Family (Son) 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) H&P Review of Systems - Review of Systems: Review Of Systems: See Below General: Reports: Malaise HEENT: Reports: No Symptoms Pulmonary: Reports: No Symptoms Cardiovascular: Reports: No Symptoms Gastrointestinal: Reports: Abdominal Pain, Anorexia, Diarrhea Genitourinary: Reports: No Symptoms Musculoskeletal: Reports: No Symptoms Skin: Reports: No Symptoms Psychiatric: Reports: No Symptoms Neurological: Reports: No Symptoms Hematologic/Lymphatic: Reports: No Symptoms Immunologic: Reports: No Symptoms Exam - Exam Exam: See Below - Vital Signs Vital Signs: Last Vital Signs Temp 36.7 C 01/05/21 15:03 Pulse 97 01/05/21 15:03 Resp 18 01/05/21 15:03 BP 174/93 H 01/05/21 15:03 Pulse Ox 98 01/05/21 15:03 Weight: 79.379 kg - Exam General: Alert, Oriented, Cooperative HEENT: Conjunctiva Clear Neck: Supple Lungs: Normal Respiratory Effort Cardiovascular: Regular Rate, Regular Rhythm GI/Abdominal Exam: Guarding, Tender, Other ([place] point tenderness and referred tenderness to this site with palpation elsewhere) Extremities: Normal Inspection Skin: Warm, Dry Neuro Extensive - Mental Status: Alert, Oriented x3 Psychiatric: Normal Mood - Patient Data Lab Results Last 24 hrs: Laboratory Results - last 24 hr 01/05/21 01/05/21 01/05/21 Range/Units 15:30 15:30 15:42 WBC 20.17 H (3.98-10.04) K/mm3 RBC 4.42 (3.98-5.22) M/mm3 Hgb 13.9 (11.2-15.7) gm/dl Hct 42.1 (34.1-44.9) % MCV 95.2 H D (79.4-94.8) fl MCH 31.4 (25.6-32.2) pg MCHC 33.0 (32.2-35.5) g/dl RDW Std Deviation 47.1 H (36.4-46.3) fL Plt Count 333 (182-369) K/mm3 MPV 9.3 L (9.4-12.3) fl Neut % (Auto) 77.3 H (34.0-71.1) % Lymph % (Auto) 16.3 L (19.3-51.7) % [place] % (Auto) 5.7 (4.7-12.5) % Eos % (Auto) 0.1 L (0.7-5.8) Baso % (Auto) 0.1 (0.1-1.2) % Neut # (Auto) 15.59 H (1.56-6.13) K/mm3 Lymph # (Auto) 3.28 (1.18-3.74) K/mm3 [place] # (Auto) 1.14 H (0.24-0.36) K/mm3 Eos # (Auto) 0.03 L (0.04-0.36) K/mm3 Baso # (Auto) 0.03 (0.01-0.08) K/mm3 Sodium 140 (136-145) mEq/L Potassium 4.4 (3.5-5.1) mEq/L Chloride 103 (98-107) mEq/L Carbon Dioxide 26 (21-32) mEq/L Anion Gap 15.4 H (5-15) BUN 8 (7-18) mg/dL Creatinine 0.9 (0.55-1.02) mg/dL Est Cr Clr Drug Dosing 80.12 mL/min Estimated GFR (MDRD) > 60 (>60) mL/min BUN/Creatinine Ratio 8.9 L (14-18) Glucose 104 H (70-99) mg/dL Calcium 9.2 (8.5-10.1) mg/dL Total Bilirubin 0.4 (0.2-1.0) mg/dL AST 17 (15-37) U/L ALT 30 (14-59) U/L Alkaline Phosphatase 63 (46-116) U/L C-Reactive Protein 1.1 H* (<1.0) mg/dL Total Protein 7.5 (6.4-8.2) g/dl Albumin 3.7 (3.4-5.0) g/dl Globulin 3.8 gm/dL Albumin/Globulin Ratio 1.0 (1-2) Lipase 82 (73-393) U/L Urine Color Yellow (Yellow) Urine Appearance Clear (Clear) Urine pH 6.0 (5.0-8.0) Ur Specific [place] 1.025 (1.005-1.030) Urine Protein Negative (Negative) Urine Glucose (UA) Negative (Negative) Urine Ketones Negative (Negative) Urine Occult Blood Negative (Negative) Urine Nitrite Negative (Negative) Urine Bilirubin Negative (Negative) Urine Urobilinogen 0.2 (0.2-1.0) Ur Leukocyte Esterase Negative (Negative) Urine HCG, Qual (NEGATIVE) 01/05/21 Range/Units 15:42 WBC (3.98-10.04) K/mm3 RBC (3.98-5.22) M/mm3 Hgb (11.2-15.7) gm/dl Hct (34.1-44.9) % MCV (79.4-94.8) fl MCH (25.6-32.2) pg MCHC (32.2-35.5) g/dl RDW Std Deviation (36.4-46.3) fL Plt Count (182-369) K/mm3 MPV (9.4-12.3) fl Neut % (Auto) (34.0-71.1) % Lymph % (Auto) (19.3-51.7) % [place] % (Auto) (4.7-12.5) % Eos % (Auto) (0.7-5.8) Baso % (Auto) (0.1-1.2) % Neut # (Auto) (1.56-6.13) K/mm3 Lymph # (Auto) (1.18-3.74) K/mm3 [place] # (Auto) (0.24-0.36) K/mm3 Eos # (Auto) (0.04-0.36) K/mm3 Baso # (Auto) (0.01-0.08) K/mm3 Sodium (136-145) mEq/L Potassium (3.5-5.1) mEq/L Chloride (98-107) mEq/L Carbon Dioxide (21-32) mEq/L Anion Gap (5-15) BUN (7-18) mg/dL Creatinine (0.55-1.02) mg/dL Est Cr Clr Drug Dosing mL/min Estimated GFR (MDRD) (>60) mL/min BUN/Creatinine Ratio (14-18) Glucose (70-99) mg/dL Calcium (8.5-10.1) mg/dL Total Bilirubin (0.2-1.0) mg/dL AST (15-37) U/L ALT (14-59) U/L Alkaline Phosphatase (46-116) U/L C-Reactive Protein (<1.0) mg/dL Total Protein (6.4-8.2) g/dl Albumin (3.4-5.0) g/dl Globulin gm/dL Albumin/Globulin Ratio (1-2) Lipase (73-393) U/L Urine Color (Yellow) Urine Appearance (Clear) Urine pH (5.0-8.0) Ur Specific [place] (1.005-1.030) Urine Protein (Negative) Urine Glucose (UA) (Negative) Urine Ketones (Negative) Urine Occult Blood (Negative) Urine Nitrite (Negative) Urine Bilirubin (Negative) Urine Urobilinogen (0.2-1.0) Ur Leukocyte Esterase (Negative) Urine HCG, Qual Negative (NEGATIVE) Result Diagrams: 01/05/21 15:30 01/05/21 15:30 Sepsis Event Note - Evaluation Sepsis Screening Result: No Definite Risk - Focused Exam Vital Signs: Vital Signs Temp Pulse Resp BP Pulse Ox 01/05/21 15:03 36.7 C 97 18 174/93 H 98 Problem List Initiated/Reviewed/Updated: Yes Orders Last 24hrs: Active Orders 24 hr Category Date Time Status Notify Provider Consults [RC] ASDIRECTED Care 01/05/21 18:02 Active Peripheral IV Care [RC] . DIRECTED Care 01/05/21 15:21 Active Consult to Physician [CONS] Stat Cons 01/05/21 18:02 Active NPO Now [Nothing per Oral Now Diet] [DIET] Diet 01/06/21 Breakfast Ordered Abdomen Pelvis w Cont [CT] Stat Exams 01/05/21 15:20 Taken CORONAVIRUS COVID-19 GARRY [MOLEC] Stat Lab 01/05/21 18:01 Received UA W/MICROSCOPIC [URIN] Stat Lab 01/05/21 15:42 Results Sodium Chloride 0.9% [Normal Saline] 1,000 ml Med 01/05/21 15:30 Active IV ASDIRECTED Sodium Chloride 0.9% [Saline Flush] Med 01/05/21 15:20 Active 10 ml FLUSH ASDIRECTED PRN Sodium Chloride 0.9% [Saline Flush] Med 01/05/21 15:38 Active 10 ml FLUSH ONETIME PRN cefOXitin [Mefoxin in Dextrose,Iso-Osm 2 GM/50 ML] 2 gm Med 01/05/21 18:25 Ord ered Premix Bag 1 bag IV ONETIME Peripheral IV Insertion Adult [OM.PC] Stat Oth 01/05/21 15:20 Ordered Schedule Procedure [COMM] Routine Oth 01/05/21 18:26 Ordered Medication Orders Sodium Chloride (Normal Saline) 1,000 mls @ 999 mls/hr IV ASDIRECTED EDUARDO Last Admin: 01/05/21 15:41 Dose: 999 mls/hr Documented by: MATLBIL Cefoxitin Sodium 2 gm/ Premix 50 mls @ 100 mls/hr IV ONETIME ONE Stop: 01/05/21 18:54 Sodium Chloride (Sodium Chloride 0.9% 10 Ml Syringe) 10 ml FLUSH ASDIRECTED PRN PRN Reason: Keep Vein Open Sodium Chloride (Sodium Chloride 0.9% 10 Ml Syringe) 10 ml FLUSH ONETIME PRN PRN Reason: IV FLUSH Last Admin: 01/05/21 16:57 Dose: 10 ml Documented by: Admin: 01/05/21 15:55 Dose: 10 ml Documented by: SINAN Assessment/Plan Comment:: Most likely acute appendicitis despite normal appearing CT. Plan for laparoscopic appendectomy. - Mortality Measure Prognosis:: Good
[2021-01-05] MEDS ORDERED: Bupivacaine 0.5%/EPINEPHrine 1:200,000 50 ML MDV ONE (18:51)
--- NOTE | 2021-01-05 18:51 | PCM.PREANE ---
Preanesthetic Assessment - Procedure Proposed Procedure: Laparoscopic Appendectomy - Anesthesia/Transfusion/Family Hx Anesthesia History: Prior Anesthesia Without Reaction Family History of Anesthesia Reaction: No Transfusion History: No Prior Transfusion(s) - Review of Systems General: Fatigue Pulmonary: No Symptoms Cardiovascular: Dyspnea on Exertion Gastrointestinal: Abdominal Pain, Nausea Neurological: No Symptoms Other: Reports: None - Physical Assessment NPO Status Date: 01/04/21 NPO Status Time: 16:00 Vital Signs: Last Vital Signs Temp 36.7 C 01/05/21 15:03 Pulse 97 01/05/21 15:03 Resp 18 01/05/21 15:03 BP 174/93 H 01/05/21 15:03 Pulse Ox 98 01/05/21 15:03 Height: 1.68 m Weight: 79.379 kg ASA Class: 2 Mental Status: Alert & Oriented x3 Airway Class: Mallampati = 1 Dentition: Reports: Dentures Thyro-Mental Finger Breadths: 3 Mouth Opening Finger Breadths: 3 ROM/Head Extension: Full Lungs: Clear to Auscultation, Normal Respiratory Effort Cardiovascular: Regular Rate, Regular Rhythm - Lab Values: Laboratory Last Values WBC 20.17 K/mm3 (3.98-10.04) H 01/05/21 15:30 RBC 4.42 M/mm3 (3.98-5.22) 01/05/21 15:30 Hgb 13.9 gm/dl (11.2-15.7) 01/05/21 15:30 Hct 42.1 % (34.1-44.9) 01/05/21 15:30 MCV 95.2 fl (79.4-94.8) H D 01/05/21 15:30 MCH 31.4 pg (25.6-32.2) 01/05/21 15:30 MCHC 33.0 g/dl (32.2-35.5) 01/05/21 15:30 RDW Std Deviation 47.1 fL (36.4-46.3) H 01/05/21 15:30 Plt Count 333 K/mm3 (182-369) 01/05/21 15:30 MPV 9.3 fl (9.4-12.3) L 01/05/21 15:30 Neut % (Auto) 77.3 % (34.0-71.1) H 01/05/21 15:30 Lymph % (Auto) 16.3 % (19.3-51.7) L 01/05/21 15:30 [place] % (Auto) 5.7 % (4.7-12.5) 01/05/21 15:30 Eos % (Auto) 0.1 (0.7-5.8) L 01/05/21 15:30 Baso % (Auto) 0.1 % (0.1-1.2) 01/05/21 15:30 Neut # (Auto) 15.59 K/mm3 (1.56-6.13) H 01/05/21 15:30 Lymph # (Auto) 3.28 K/mm3 (1.18-3.74) 01/05/21 15:30 [place] # (Auto) 1.14 K/mm3 (0.24-0.36) H 01/05/21 15:30 Eos # (Auto) 0.03 K/mm3 (0.04-0.36) L 01/05/21 15:30 Baso # (Auto) 0.03 K/mm3 (0.01-0.08) 01/05/21 15:30 Sodium 140 mEq/L (136-145) 01/05/21 15:30 Potassium 4.4 mEq/L (3.5-5.1) 01/05/21 15:30 Chloride 103 mEq/L (98-107) 01/05/21 15:30 Carbon Dioxide 26 mEq/L (21-32) 01/05/21 15:30 Anion Gap 15.4 (5-15) H 01/05/21 15:30 BUN 8 mg/dL (7-18) 01/05/21 15:30 Creatinine 0.9 mg/dL (0.55-1.02) 01/05/21 15:30 Est Cr Clr Drug Dosing 80.12 mL/min 01/05/21 15:30 Estimated GFR (MDRD) > 60 mL/min (>60) 01/05/21 15:30 BUN/Creatinine Ratio 8.9 (14-18) L 01/05/21 15:30 Glucose 104 mg/dL (70-99) H 01/05/21 15:30 Calcium 9.2 mg/dL (8.5-10.1) 01/05/21 15:30 Total Bilirubin 0.4 mg/dL (0.2-1.0) 01/05/21 15:30 AST 17 U/L (15-37) 01/05/21 15:30 ALT 30 U/L (14-59) 01/05/21 15:30 Alkaline Phosphatase 63 U/L (46-116) 01/05/21 15:30 C-Reactive Protein 1.1 mg/dL (<1.0) H* 01/05/21 15:30 Total Protein 7.5 g/dl (6.4-8.2) 01/05/21 15:30 Albumin 3.7 g/dl (3.4-5.0) 01/05/21 15:30 Globulin 3.8 gm/dL 01/05/21 15:30 Albumin/Globulin Ratio 1.0 (1-2) 01/05/21 15:30 Lipase 82 U/L (73-393) 01/05/21 15:30 Urine Color Yellow (Yellow) 01/05/21 15:42 Urine Appearance Clear (Clear) 01/05/21 15:42 Urine pH 6.0 (5.0-8.0) 01/05/21 15:42 Ur Specific [place] 1.025 (1.005-1.030) 01/05/21 15:42 Urine Protein Negative (Negative) 01/05/21 15:42 Urine Glucose (UA) Negative (Negative) 01/05/21 15:42 Urine Ketones Negative (Negative) 01/05/21 15:42 Urine Occult Blood Negative (Negative) 01/05/21 15:42 Urine Nitrite Negative (Negative) 01/05/21 15:42 Urine Bilirubin Negative (Negative) 01/05/21 15:42 Urine Urobilinogen 0.2 (0.2-1.0) 01/05/21 15:42 Ur Leukocyte Esterase Negative (Negative) 01/05/21 15:42 Urine HCG, Qual Negative (NEGATIVE) 01/05/21 15:42 - Allergies Allergies/Adverse Reactions: Allergies Allergy/AdvReac Type Severity Reaction Status Date / Time bee pollen Allergy Rash Verified 06/05/20 20:26 - Blood Blood Available: No Product(s) Available: None - Anesthesia Plan Pre-Op Medication Ordered: None - Acknowledgements Anesthesia Type Planned: General Anesthesia Pt an Appropriate Candidate for the Planned Anesthesia: Yes Alternatives and Risks of Anesthesia Discussed w Pt/Guardian: Yes Pt/Guardian Understands and Agrees with Anesthesia Plan: Yes PreAnesthesia Questionnaire TAPER AND 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 [No Known Home Meds] 01/05/21 [History] - CURRENT (IN HOUSE) MEDS Current Meds: Current Medications Sodium Chloride (Normal Saline) 1,000 mls @ 999 mls/hr IV ASDIRECTED EDUARDO Last Admin: 01/05/21 15:41 Dose: 999 mls/hr Documented by: Cefoxitin Sodium 2 gm/ Premix 50 mls @ 100 mls/hr IV ONETIME ONE Stop: 01/05/21 18:54 Sodium Chloride (Sodium Chloride 0.9% 10 Ml Syringe) 10 ml FLUSH ASDIRECTED PRN PRN Reason: Keep Vein Open Sodium Chloride (Sodium Chloride 0.9% 10 Ml Syringe) 10 ml FLUSH ONETIME PRN PRN Reason: IV FLUSH Last Admin: 01/05/21 16:57 Dose: 10 ml Documented by: Discontinued Medications Diatrizoate Meglum/Diatrizoate Sod (Diatrizoate Meglumine/Diatrizoate Sodium 37% 120 Ml Bottle) 120 ml PO ONETIME ONE Stop: 01/05/21 15:39 Last Admin: 01/05/21 16:58 Dose: 90 ml Documented by: Iopamidol (Iopamidol 612 Mg/Ml 100 Ml Bottle) 100 ml IVPUSH ONETIME ONE Stop: 01/05/21 15:39 Last Admin: 01/05/21 16:57 Dose: 100 ml Documented by: Ondansetron HCl (Ondansetron 4 Mg/2 Ml Sdv) 4 mg IVPUSH ONETIME ONE Stop: 01/05/21 15:21 Last Admin: 01/05/21 15:41 Dose: 4 mg Documented by:
[2021-01-05] MEDS ORDERED: Rocuronium 50 MG/5 ML Vial ONE (18:59)
[2021-01-05] MEDS ORDERED: Ondansetron 4 MG/2 ML SDV ONE (18:59)
[2021-01-05] MEDS ORDERED: Midazolam 1 MG/ML 2 ML SDV ONE (19:00)
[2021-01-05] MEDS ORDERED: Ketorolac 30 MG/ML SDV ONE (19:00)
[2021-01-05] MEDS ORDERED: fentaNYL 250 MCG/5 ML SDV ONE (19:00)
[2021-01-05] MEDS ORDERED: Lidocaine 1% 4 ML ONE (19:00)
[2021-01-05] MEDS ORDERED: Propofol 200 MG/20 ML SDV ONE (19:00)
[2021-01-05] MEDS ORDERED: HYDROmorphone 0.5 MG/0.5 ML Syringe ONE (19:33)
[2021-01-05] MEDS ORDERED: fentaNYL 100 MCG/2 ML SDV ONE (19:34)
[2021-01-05] MEDS ORDERED: Lactated Ringers 1,000 ML ONE ×2 (19:54→20:12)
[2021-01-05] MEDS ORDERED: Lactated Ringers 1,000 ML IV SCH (20:15)
--- NOTE | 2021-01-05 20:20 | PCM.POSTAN ---
POST ANESTHESIA ASSESSMENT - MENTAL STATUS Mental Status: Alert, Oriented - VITAL SIGNS Vital Signs: Last Vital Signs Temp 36.7 C 01/05/21 15:03 Pulse 97 01/05/21 15:03 Resp 18 01/05/21 15:03 BP 174/93 H 01/05/21 15:03 Pulse Ox 98 01/05/21 15:03 - RESPIRATORY Respiratory Status: Respiratory Rate WNL, Airway Patent, O2 Saturation Stable, Supplemental Oxygen - CARDIOVASCULAR CV Status: Pulse Rate WNL, Blood Pressure Stable - GASTROINTESTINAL GI Status: No Symptoms - PAIN Pain Score: 0 - POST OP HYDRATION Hydration Status: Adequate & Stable - OBSERVATIONS Free Text/Narrative:: no anesthesia complications noted
[2021-01-05] MEDS ORDERED: Morphine 4 MG/ML Syringe IVPUSH PRN (20:25)
--- NOTE | 2021-01-05 20:28 | PCM.PRNOTE ---
- Free Text/Narrative Note: Date: 01/05/2021 Operation: laparoscopic appendectomy Indication: clinical presentation consistent with appendicitis, with WBC 20,000 but normal findings on CT scan Surgeon: Jaquan Avila MD Antibiotic: 2 g cefoxitin IV pre-incision EBL: 5 cc DVT Ppx: SCD Specimen : appendix Findings: normal appearing appendix. The small intestine was inspected thoroughly and no inflammatory changes or abnormalities were noted. This visualized colon and other viscera all appeared normal. There was some reactive fluid in the pelvis. The uterus and adnexa appeared fairly normal, and Dr. Robbins, OB-VICE PRESIDENT OF NURSING, was called to evaluate the appearance of uterus and adnexa. Detailed Report: The patient was taken to the OR and placed supine on the table. Time out was performed and general endotracheal anesthesia was initiated. The abdomen was prepped and draped in sterile fashion after tucking the left arm. A Veress needle was placed in the left upper quadrant to establish pneumoperitoneum. Once pressure reached 15 mm Hg, air was aspirated inferior to the umbilicus with a needle and syringe. A bladed 12 mm trocar was inserted at this site and the laparoscope (5 mm, 30 degree) was introduced into the abdomen. There was no injury from Veress placement and the needle was removed. Additional 5 mm ports were placed at the suprapubic area and left lower quadrant under laparoscopic visualization. The patient was positioned in Trendelenburg and rotated toward the surgeon standing on the patient's left side. Graspers were used to identify the appendix coming off the cecum. It appeared normal, without inflammation. This was removed using a 45 mm vascular staple load across the base, and mesoappendix was divided using the [place] Ligasure. The specimen was placed in an Endocatch bag and removed. Next, the small bowel was run from the ileocecal junction to the Ligament of Treitz, then back to the ileocecal junction; no a bnormality was noted. The ascending and transverse colon, stomach and liver appeared normal. The gallbladder was surgically absent. The descending and sigmoid colon were not well visualized due to port placement. There was scant serous reactive fluid in the pelvis. The uterus appeared normal. The right and left ovary appeared normal. There appeared to be some possible right hydrosalpinx, and Dr. Robbins, OB-VICE PRESIDENT OF NURSING cone machine feeder, was sent pictures for her assessment. She felt the findings were benign and not likely to be the source of the patient's symptoms. The larger port was then removed and fascia was closed with a 0 vicryl suture using a laparoscopic suture passer. The left lower quadrant port was removed and there was no hemorrhage noted. Pneumoperitoneum was released and the suprapubic port removed. Incisions were closed with subcuticular absorbable suture and dressed with dermabond. A total of 30 cc 0.5% marcaine with epinephrine was used for anesthetic. The patient tolerated the operation well.
[2021-01-05] MEDS: fentaNYL 100 MCG/2 ML SDV IVPUSH PRN ×2 (20:36→21:22)
--- NOTE | 2021-01-05 20:37 | PCM48HPAN ---
Post Anesthesia Note - EVALUATION WITHIN 48HRS OF ANESTHETIC Vital Signs in Normal Range: Yes Patient Participated in Evaluation: Yes Respiratory Function Stable: Yes Airway Patent: Yes Cardiovascular Function Stable: Yes Hydration Status Stable: Yes Pain Control Satisfactory: Yes Nausea and Vomiting Control Satisfactory: Yes Mental Status Recovered: Yes Vital Signs: Last Vital Signs Temp 36.7 C 01/05/21 15:03 Pulse 97 01/05/21 15:03 Resp 18 01/05/21 15:03 BP 174/93 H 01/05/21 15:03 Pulse Ox 98 01/05/21 15:03 - COMMENTS/OBSERVATIONS Free Text/Narrative:: no anesthesia complications noted
[2021-01-05] MEDS: oxyCODONE 5 MG Tab PO PRN (22:25)
[2021-01-06] MEDS: oxyCODONE 5 MG Tab PO PRN ×2 (00:24→08:10)
[2021-01-06] MEDS: Acetaminophen 325 MG Tab PO SCH ×3 (00:29→08:17)
[2021-01-06 08:00] VITALS: BP 103/59
[2021-01-06 08:01] VITALS: PULSE 58
--- NOTE | 2021-01-06 08:43 | PCM.DCSUM1 ---
Discharge Summary - Hospital Course Free Text/Narrative:: Ms. Proctor was seen in the emergency room yesterday evening for new onset right lower quadrant pain and leukocytosis highly suspicious for acute appendicitis. However, her CT scan appeared normal, with no evidence of inflammatory process in the abdomen. She was taken to the operating room for laparoscopic appendectomy. The appendix appeared grossly normal, and the small bowel, colon, stomach, liver, and pelvic organs all appeared relatively normal. She was kept overnight for observation and pain control. On the morning of postop day 1, her white count had gone from 20,000-12,000, and neutrophilia had resolved. Her preoperative pain seems resolved, and she had some soreness around her incision sites. She had no bowel movement while in-house following her operation. She was able to tolerate clear liquid diet without any trouble. Vital signs remained normal and stable overnight. She was deemed fit for discharge to home on the morning of postop day 1, with plan for her to follow-up in clinic in the middle of next week and to call or seek care if signs of infection or persistent abdominal pain presented. Diagnosis: Stroke: No - Discharge Data Discharge Date: 01/06/21 Discharge Disposition: Home, Self-Care 01 Condition: Good - Referral to Home Health Primary Care Physician: Lexis Shannon NP - Patient Summary/Data Operative Procedure(s) Performed: laparoscopic appendectomy Consults: Consultations 01/05/21 18:02 Consult to Physician [CONS] Stat - Patient Instructions Diet: Usual Diet as Tolerated Activity: As Tolerated, No Lifting Over 10 Pounds - Discharge Plan *PRESCRIPTION DRUG MONITORING PROGRAM REVIEWED*: Not Applicable *COPY OF PRESCRIPTION DRUG MONITORING REPORT IN PATIENT TERESE: Not Applicable Prescriptions/Med Rec: oxyCODONE 5 mg PO Q4H PRN #15 tab PRN Reason: Pain Home Medications: Home Meds oxyCODONE 5 mg PO Q4H PRN #15 tab 01/06/21 [Rx] Oxygen Therapy Mode: Room Air Patient Handouts: Laparoscopic Appendectomy, Adult, Care After, [id number], Steps to Quit Smoking Forms: ED Department Discharge Referrals: Lexis Shannon NP [Primary Care Provider] - (Follow up as needed) Jaquan Avila MD [Physician] - - Discharge Summary/Plan Comment DC Time >30 min.: No Total # of Minutes for Discharge Time: 15 Discharge Summary/Plan Comment: Follow-up in clinic with Dr. Avila next week. - Patient Data Vitals - Most Recent: Last Vital Signs Temp 37.0 C 01/06/21 07:49 Pulse 58 L 01/06/21 07:58 Resp 16 01/06/21 07:49 BP 103/59 L 01/06/21 07:49 Pulse Ox 91 L 01/06/21 07:58 Weight - Most Recent: 81.284 kg I&O - Last 24 hours: Intake & Output 01/05/21 01/06/21 01/06/21 22:59 06:59 14:59 Intake Total 1537 Balance 1537 Lab Results - Last 24 hrs: Laboratory Results - last 24 hr 01/05/21 01/05/21 01/05/21 Range/Units 15:30 15:30 15:42 WBC 20.17 H (3.98-10.04) K/mm3 RBC 4.42 (3.98-5.22) M/mm3 Hgb 13.9 (11.2-15.7) gm/dl Hct 42.1 (34.1-44.9) % MCV 95.2 H D (79.4-94.8) fl MCH 31.4 (25.6-32.2) pg MCHC 33.0 (32.2-35.5) g/dl RDW Std Deviation 47.1 H (36.4-46.3) fL Plt Count 333 (182-369) K/mm3 MPV 9.3 L (9.4-12.3) fl Neut % (Auto) 77.3 H (34.0-71.1) % Lymph % (Auto) 16.3 L (19.3-51.7) % [place] % (Auto) 5.7 (4.7-12.5) % Eos % (Auto) 0.1 L (0.7-5.8) Baso % (Auto) 0.1 (0.1-1.2) % Neut # (Auto) 15.59 H (1.56-6.13) K/mm3 Lymph # (Auto) 3.28 (1.18-3.74) K/mm3 [place] # (Auto) 1.14 H (0.24-0.36) K/mm3 Eos # (Auto) 0.03 L (0.04-0.36) K/mm3 Baso # (Auto) 0.03 (0.01-0.08) K/mm3 Sodium 140 (136-145) mEq/L Potassium 4.4 (3.5-5.1) mEq/L Chloride 103 (98-107) mEq/L Carbon Dioxide 26 (21-32) mEq/L Anion Gap 15.4 H (5-15) BUN 8 (7-18) mg/dL Creatinine 0.9 (0.55-1.02) mg/dL Est Cr Clr Drug Dosing 80.12 mL/min Estimated GFR (MDRD) > 60 (>60) mL/min BUN/Creatinine Ratio 8.9 L (14-18) Glucose 104 H (70-99) mg/dL Calcium 9.2 (8.5-10.1) mg/dL Total Bilirubin 0.4 (0.2-1.0) mg/dL AST 17 (15-37) U/L ALT 30 (14-59) U/L Alkaline Phosphatase 63 (46-116) U/L C-Reactive Protein 1.1 H* (<1.0) mg/dL Total Protein 7.5 (6.4-8.2) g/dl Albumin 3.7 (3.4-5.0) g/dl Globulin 3.8 gm/dL Albumin/Globulin Ratio 1.0 (1-2) Lipase 82 (73-393) U/L Urine Color Yellow (Yellow) Urine Appearance Clear (Clear) Urine pH 6.0 (5.0-8.0) Ur Specific [place] 1.025 (1.005-1.030) Urine Protein Negative (Negative) Urine Glucose (UA) Negative (Negative) Urine Ketones Negative (Negative) Urine Occult Blood Negative (Negative) Urine Nitrite Negative (Negative) Urine Bilirubin Negative (Negative) Urine Urobilinogen 0.2 (0.2-1.0) Ur Leukocyte Esterase Negative (Negative) Urine RBC 0-5 (0-5) /hpf Urine WBC 0-5 (0-5) /hpf Ur Squamous Epith Cells 5-10 H (0-5) /hpf Urine Bacteria Few (FEW) /hpf Urine Mucus Few (FEW) /hpf Urine HCG, Qual (NEGATIVE) SARS-CoV-2 RNA (GARRY) (NEGATIVE) 01/05/21 01/05/2101/06/21 Range/Units 15:42 18:01 06:40 WBC 12.23 H (3.98-10.04) K/mm3 RBC 3.77 L (3.98-5.22) M/mm3 Hgb 11.9 D (11.2-15.7) gm/dl Hct 37.0 (34.1-44.9) % MCV 98.1 H (79.4-94.8) fl MCH 31.6 (25.6-32.2) pg MCHC 32.2 (32.2-35.5) g/dl RDW Std Deviation 49.4 H (36.4-46.3) fL Plt Count 258 D (182-369) K/mm3 MPV 9.3 L (9.4-12.3) fl Neut % (Auto) 71.1 (34.0-71.1) % Lymph % (Auto) 22.2 (19.3-51.7) % [place] % (Auto) 5.5 (4.7-12.5) % Eos % (Auto) 0.7 (0.7-5.8) Baso % (Auto) 0.1 (0.1-1.2) % Neut # (Auto) 8.70 H (1.56-6.13) K/mm3 Lymph # (Auto) 2.71 (1.18-3.74) K/mm3 [place] # (Auto) 0.67 H (0.24-0.36) K/mm3 Eos # (Auto) 0.09 (0.04-0.36) K/mm3 Baso # (Auto) 0.01 (0.01-0.08) K/mm3 Sodium (136-145) mEq/L Potassium (3.5-5.1) mEq/L Chloride (98-107) mEq/L Carbon Dioxide (21-32) mEq/L Anion Gap (5-15) BUN (7-18) mg/dL Creatinine (0.55-1.02) mg/dL Est Cr Clr Drug Dosing mL/min Estimated GFR (MDRD) (>60) mL/min BUN/Creatinine Ratio (14-18) Glucose (70-99) mg/dL Calcium (8.5-10.1) mg/dL Total Bilirubin (0.2-1.0) mg/dL AST (15-37) U/L ALT (14-59) U/L Alkaline Phosphatase (46-116) U/L C-Reactive Protein (<1.0) mg/dL Total Protein (6.4-8.2) g/dl Albumin (3.4-5.0) g/dl Globulin gm/dL Albumin/Globulin Ratio (1-2) Lipase (73-393) U/L Urine Color (Yellow) Urine Appearance (Clear) Urine pH (5.0-8.0) Ur Specific [place] (1.005-1.030) Urine Protein (Negative) Urine Glucose (UA) (Negative) Urine Ketones (Negative) Urine Occult Blood (Negative) Urine Nitrite (Negative) Urine Bilirubin (Negative) Urine Urobilinogen (0.2-1.0) Ur Leukocyte Esterase (Negative) Urine RBC (0-5) /hpf Urine WBC (0-5) /hpf Ur Squamous Epith Cells (0-5) /hpf Urine Bacteria (FEW) /hpf Urine Mucus (FEW) /hpf Urine HCG, Qual Negative (NEGATIVE) SARS-CoV-2 RNA (GARRY) Negative (NEGATIVE) 01/06/21 Range/Units 06:40 WBC (3.98-10.04) K/mm3 RBC (3.98-5.22) M/mm3 Hgb (11.2-15.7) gm/dl Hct (34.1-44.9) % MCV (79.4-94.8) fl MCH (25.6-32.2) pg MCHC (32.2-35.5) g/dl RDW Std Deviation (36.4-46.3) fL Plt Count (182-369) K/mm3 MPV (9.4-12.3) fl Neut % (Auto) (34.0-71.1) % Lymph % (Auto) (19.3-51.7) % [place] % (Auto) (4.7-12.5) % Eos % (Auto) (0.7-5.8) Baso % (Auto) (0.1-1.2) % Neut # (Auto) (1.56-6.13) K/mm3 Lymph # (Auto) (1.18-3.74) K/mm3 [place] # (Auto) (0.24-0.36) K/mm3 Eos # (Auto) (0.04-0.36) K/mm3 Baso # (Auto) (0.01-0.08) K/mm3 Sodium 150 H D (136-145) mEq/L Potassium 3.5 (3.5-5.1) mEq/L Chloride 96 L (98-107) mEq/L Carbon Dioxide 19 L (21-32) mEq/L Anion Gap 38.5 H (5-15) BUN 24 H (7-18) mg/dL Creatinine 0.5 L (0.55-1.02) mg/dL Est Cr Clr Drug Dosing 149.81 mL/min Estimated GFR (MDRD) > 60 (>60) mL/min BUN/Creatinine Ratio 48.0 H (14-18) Glucose 128 H (70-99) mg/dL Calcium 9.3 (8.5-10.1) mg/dL Total Bilirubin (0.2-1.0) mg/dL AST (15-37) U/L ALT (14-59) U/L Alkaline Phosphatase (46-116) U/L C-Reactive Protein (<1.0) mg/dL Total Protein (6.4-8.2) g/dl Albumin (3.4-5.0) g/dl Globulin gm/dL Albumin/Globulin Ratio (1-2) Lipase (73-393) U/L Urine Color (Yellow) Urine Appearance (Clear) Urine pH (5.0-8.0) Ur Specific [place] (1.005-1.030) Urine Protein (Negative) Urine Glucose (UA) (Negative) Urine Ketones (Negative) Urine Occult Blood (Negative) Urine Nitrite (Negative) Urine Bilirubin (Negative) Urine Urobilinogen (0.2-1.0) Ur Leukocyte Esterase (Negative) Urine RBC (0-5) /hpf Urine WBC (0-5) /hpf Ur Squamous Epith Cells (0-5) /hpf Urine Bacteria (FEW) /hpf Urine Mucus (FEW) /hpf Urine HCG, Qual (NEGATIVE) SARS-CoV-2 RNA (GARRY) (NEGATIVE) Med Orders - Current: Current Medications Acetaminophen (Acetaminophen 325 Mg Tab) 975 mg PO Q8H EDUARDO Last Admin: 01/06/21 08:17 Dose: Not Given Documented by: Lactated Ringer's (Ringers, Lactated) 1,000 mls @ 100 mls/hr IV ASDIRECTED [facility] Last Admin: 01/05/21 23:26 Dose: 100 mls/hr Documented by: Morphine Sulfate (Morphine 4 Mg/Ml Syringe) 1 mg IVPUSH Q4H PRN PRN Reason: Pain (severe 7-10) Oxycodone HCl (Oxycodone 5 Mg Tab) 5 mg PO Q4H PRN PRN Reason: Pain (moderate 4-6) Last Admin: 01/06/21 08:10 Dose: 5 mg Documented by: Sodium Chloride (Sodium Chloride 0.9% 10 Ml Syringe) 10 ml FLUSH ASDIRECTED PRN PRN Reason: Keep Vein Open Discontinued Medications Bupivacaine HCl/Epinephrine Bitart (Bupivacaine 0.5%/Epinephrine 1:200,000 50 Ml Mdv) Confirm Administered Dose 50 ml .ROUTE .STK-MED ONE Stop: 01/05/21 18:52 Last Admin: 01/05/21 19:28 Dose: 30 ml Documented by: Diatrizoate Meglum/Diatrizoate Sod (Diatrizoate Meglumine/Diatrizoate Sodium 37% 120 Ml Bottle) 120 ml PO ONETIME ONE Stop: 01/05/21 15:39 Last Admin: 01/05/21 16:58 Dose: 90 ml Documented by: Fentanyl (Fentanyl 250 Mcg/5 Ml Sdv) Confirm Administered Dose 250 mcg .ROUTE .STK-MED ONE Stop: 01/05/21 19:01 Fentanyl (Fentanyl 100 Mcg/2 Ml Sdv) Confirm Administered Dose 100 mcg .ROUTE .STK-MED ONE Stop: 01/05/21 19:35 Fentanyl (Fentanyl 100 Mcg/2 Ml Sdv) 50 mcg IVPUSH Q5M PRN PRN Reason: Pain Last Admin: 01/05/21 21:22 Dose: 50 mcg Documented by: Hydromorphone HCl (Hydromorphone 0.5 Mg/0.5 Ml Syringe) Confirm Administered Dose 0.5 mg .ROUTE .STK-MED ONE Stop: 01/05/21 19:34 Sodium Chloride (Normal Saline) 1,000 mls @ 999 mls/hr IV ASDIRECTED [facility] Last Admin: 01/05/21 15:41 Dose: 999 mls/hr Documented by: Cefoxitin Sodium 2 gm/ Premix 50 mls @ 100 mls/hr IV ONETIME ONE Stop: 01/05/21 18:54 Last Admin: 01/06/21 00:29 Dose: Not Given Documented by: Lidocaine HCl (Xylocaine-Mpf 1%) Confirm Administered Dose 4 mls @ as directed .ROUTE .STK-MED ONE Stop: 01/05/21 19:01 Cefoxitin Sodium (Mefoxin In Dextrose,Iso-Osm 2 Gm/50 Ml) Confirm Administered Dose 50 mls @ as directed .ROUTE .STK-MED ONE Stop: 01/05/21 19:27 Lactated Ringer's (Ringers, Lactated) Confirm Administered Dose 1,000 mls @ as directed .ROUTE .STK-MED ONE Stop: 01/05/21 19:55 Lactated Ringer's (Ringers, Lactated) Confirm Administered Dose 1,000 mls @ as directed .ROUTE .STK-MED ONE Stop: 01/05/21 20:13 Iopamidol (Iopamidol 612 Mg/Ml 100 Ml Bottle) 100 ml IVPUSH ONETIME ONE Stop: 01/05/21 15:39 Last Admin: 01/05/21 16:57 Dose: 100 ml Documented by: Ketorolac Tromethamine (Ketorolac 30 Mg/Ml Sdv) Confirm Administered Dose 30 mg .ROUTE .STK-MED ONE Stop: 01/05/21 19:01 Midazolam HCl (Midazolam 1 Mg/Ml 2 Ml Sdv) Confirm Administered Dose 2 mg .ROUTE .STK-MED ONE Stop: 01/05/21 19:01 Ondansetron HCl (Ondansetron 4 Mg/2 Ml Sdv) 4 mg IVPUSH ONETIME ONE Stop: 01/05/21 15:21 Last Admin: 01/05/21 15:41 Dose: 4 mg Documented by: Ondansetron HCl (Ondansetron 4 Mg/2 Ml Sdv) Confirm Administered Dose 4 mg .ROUTE .STK-MED ONE Stop: 01/05/21 19:00 Propofol (Propofol 200 Mg/20 Ml Sdv) Confirm Administered Dose 200 mg .ROUTE .STK-MED ONE Stop: 01/05/21 19:01 Rocuronium [place] (Rocuronium 50 Mg/5 Ml Vial) Confirm Administered Dose 50 mg .ROUTE .STK-MED ONE Stop: 01/05/21 19:00 Sodium Chloride (Sodium Chloride 0.9% 10 Ml Syringe) 10 ml FLUSH ONETIME PRN PRN Reason: IV FLUSH Last Admin: 01/05/21 16:57 Dose: 10 ml Documented by:
--- NOTE | 2021-01-06 08:49 | CT ---
CT abdomen and pelvis Technique: Multiple axial sections were obtained from above the dome of the diaphragm inferiorly through the pubic symphysis. Intravenous and oral contrast were utilized. Delayed images were also obtained through the bladder. Reconstructed coronal and sagittal images were obtained. Comparison: No prior abdominal imaging is available. Findings: Partially visualized bilateral breast prostheses are noted. Liver shows no focal abnormality. Surgical clips are seen from prior cholecystectomy. Spleen size is normal. Adrenal glands show no nodule. Pancreas is within normal limits. Adrenal glands show no nodule. Kidneys show symmetric contrast enhancement without hydronephrosis or mass. Abdominal aorta shows no aneurysm. No retroperitoneal adenopathy or mesenteric abnormalities are seen. No pelvic mass or adenopathy is appreciated. Delayed images show contrast within the ureters and bladder. Duplicated ureters are seen on the right side which occur down to the UVJ. No ureteral dilatation is seen. Bone window settings were reviewed which show mild degenerative change within the lumbar spine. No acute osseous abnormality is appreciated. Impression: 1. 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 No ureteral dilatation or ureteral stone is seen. 2. Prior cholecystectomy. 3. Other portions of the abdominal and pelvic CT study appear unremarkable. Diagnostic code #2 I agree with preliminary report from [facility], finalized on 01/05/21, 6:45 PM CDT, code 1
== END 2021-01-06 09:51 | disposition home or self-care (01) ==
LOC: JD.ED 14:56 → JD.SDS 18:32 → JD.OB 20:14 → JD.MS 23:37
PROVIDERS: ADMIT Surgery; ATTEND Surgery
DX: K37 Unspecified appendicitis (principal); Z91.030 Bee allergy status; Z90.49 Acquired absence of other specified parts of digestive tract; F17.210 Nicotine dependence, cigarettes, uncomplicated; Z01.812 Encounter for preprocedural laboratory examination; Z20.822 Contact with and (suspected) exposure to COVID-19
CPT/HCPCS: 36415; 44970; 74177; 80048; 80053; 81001; 81025; 83690; 85025; 86140; 87635; 96374; 99285; A9270; G0378; J0694; J1170; J1885; J2250; J2405; J2704; J3010; J3490; J7030; J7120; Q9963; Q9967; 00840; U0002

== ENCOUNTER 2023-08-08 08:19 | Emergency (ER) | payer MEDICAID ==
[2023-08-08 09:09] VITALS: BP 158/95; PULSE 71
[2023-08-08] MEDS: Lidocaine 4% 1 each Patch TOP ONE (09:16)
[2023-08-08 09:31] LABS: APPEARANCE,URINE CLEAR (Clear); BILIRUBIN,URINE NEGATIVE (Negative); COLOR,URINE YELLOW (Yellow); GLUCOSE,URINE NEGATIVE (Negative); KETONES,URINE TRACE (Negative); LEUKOCYTE ESTERASE,URINE TRACE (Negative); NITRITE,URINE NEGATIVE (Negative); OCCULT BLOOD,URINE NEGATIVE (Negative); PROTEIN,URINE NEGATIVE (Negative); UROBILINOGEN,URINE 0.2 (0.2-1.0)
[2023-08-08 09:39] LABS: BACTERIA,URINE FEW /hpf (FEW); HYALINE CASTS,URINE 0-5 /lpf (0-5); MUCUS,URINE FEW /hpf (FEW); RBC,URINE 0-5 /hpf (0-5); SQUAMOUS EPITHELIAL CELLS,UR 0-5 /hpf (0-5); WBC,URINE 0-5 /hpf (0-5)
[2023-08-08] MEDS ORDERED: Ketorolac 30 MG/ML SDV IM ONE (11:21)
[2023-08-08] MEDS: Ketorolac 15 MG/ML SDV IM ONE (11:44)
== END 2023-08-08 12:26 | disposition home or self-care (01) ==
LOC: JD.ED 08:19
DX: M62.830 Muscle spasm of back (principal); F17.210 Nicotine dependence, cigarettes, uncomplicated; Z91.030 Bee allergy status; Z86.19 Personal history of other infectious and parasitic diseases; Z86.16 Personal history of COVID-19; Z90.49 Acquired absence of other specified parts of digestive tract
CPT/HCPCS: 81001; 81003; 81025; 87086; 96372; 99283; A9270-GY; J1885

== ENCOUNTER 2025-02-04 14:40 | Emergency (ER) | payer OTHER ==
[2025-02-04 16:48] VITALS: BP 108/79; PULSE 82
== END 2025-02-04 16:25 | disposition home or self-care (01) ==
LOC: JD.ED 14:40
DX: R20.2 Paresthesia of skin (principal); Z91.030 Bee allergy status; Z86.16 Personal history of COVID-19
CPT/HCPCS: 70450; 70450-26; 72125; 72125-26; 82947; 99283; 99284